=== PATIENT | male | born 1945 | race Caucasian/White ===

== ENCOUNTER 2022-01-16 11:43 | Inpatient (IN) | payer OTHER ==
[~2022-01-16] VITALS: Ht 172.7 cm; Wt 69.0 kg
[~2022-01-16 11:43] MED LIST: KEFLEX CAP 500500 MG PO; POLYSPORIN OP3.5 GM TOP
[2022-01-16] MEDS ORDERED: FINASTERIDE5 MG PO (12:49)
[2022-01-16] MEDS ORDERED: SODIUM BICARBO650 MG PO (12:49)
[2022-01-16] MEDS ORDERED: ELIQUIS5 MG PO (12:50)
[2022-01-16] MEDS ORDERED: METOPROLOL TART25 MG PO (12:50)
[2022-01-16] MEDS ORDERED: PROTONIX40 MG PO (12:50)
[2022-01-17 04:08] LABS: HEMOGLOBIN 11.9 gm/dl (14.0-17.5); RED BLOOD COUNT 4.32 M/UL (4.20-5.50); WHITE BLOOD COUNT 12.8 K/UL (4.5-11.0)
[2022-01-17 16:00] LABS: BODY FLUID SOURCE BRONCH RIGHT LUNG
[2022-01-18 12:03] LABS: RED BLOOD COUNT 4.03 M/UL (4.20-5.50)
[2022-01-18 12:04] LABS: WHITE BLOOD COUNT 8.9 K/UL (4.5-11.0)
[2022-01-19 04:33] LABS: HEMOGLOBIN 10.9 gm/dl (14.0-17.5); RED BLOOD COUNT 3.96 M/UL (4.20-5.50); WHITE BLOOD COUNT 6.9 K/UL (4.5-11.0)
[2022-01-20 11:18] LABS: RED BLOOD COUNT 4.01 M/UL (4.20-5.50)
[2022-01-22 05:17] LABS: HEMOGLOBIN 12.1 gm/dl (14.0-17.5); RED BLOOD COUNT 4.39 M/UL (4.20-5.50); WHITE BLOOD COUNT 6.7 K/UL (4.5-11.0)
[2022-01-24 09:21] LABS: HEMOGLOBIN 12.4 gm/dl (14.0-17.5); RED BLOOD COUNT 4.55 M/UL (4.20-5.50)
[2022-01-25 05:10] LABS: HEMOGLOBIN 12.1 gm/dl (14.0-17.5); RED BLOOD COUNT 4.41 M/UL (4.20-5.50); WHITE BLOOD COUNT 6.5 K/UL (4.5-11.0)
[2022-01-27 12:03] LABS: HEMOGLOBIN 11.9 gm/dl (14.0-17.5); RED BLOOD COUNT 4.29 M/UL (4.20-5.50)
[2022-01-28 04:28] LABS: HEMOGLOBIN 11.3 gm/dl (14.0-17.5); RED BLOOD COUNT 4.12 M/UL (4.20-5.50)
[2022-01-28 04:30] LABS: WHITE BLOOD COUNT 7.8 K/UL (4.5-11.0)
[2022-01-29 04:50] LABS: HEMOGLOBIN 12.1 gm/dl (14.0-17.5); RED BLOOD COUNT 4.39 M/UL (4.20-5.50); WHITE BLOOD COUNT 6.2 K/UL (4.5-11.0)
[2022-01-29] MEDS ORDERED: TYLENOL EL325 MG/10 PO (16:56)
[2022-01-29] MEDS ORDERED: IPRAT-ALBUT 0.5-3 ML NEB (16:56)
[2022-01-30 05:59] LABS: HEMOGLOBIN 11.9 gm/dl (14.0-17.5); RED BLOOD COUNT 4.37 M/UL (4.20-5.50); WHITE BLOOD COUNT 6.4 K/UL (4.5-11.0)
[2022-01-30] MEDS ORDERED: ROXANOL SOLN20 MG/ML PO (12:33)
[2022-01-30] MEDS ORDERED: BISACODYL10 MG PR (12:33)
[2022-01-30] MEDS ORDERED: HYOSCYAMINE0.125 M2 SL (12:33)
[2022-01-30] MEDS ORDERED: LORAZEPAM0.5 MG SL (12:33)
[2022-01-30] MEDS ORDERED: ZOFRAN ODT 4 MG4 MG SL (12:33)
== END 2022-01-30 16:35 | DRG 870 ==
LOC: CCU 11:43 → PROG CARE 01-25 15:07 → CCU 01-26 23:00
PROVIDERS: Internal Medicine; Internal Medicine Critical Care Medicine; Internal Medicine Pulmonary Disease; ADMIT Internal Medicine Infectious Disease
PROC: 3E03329 Introduction of Other Anti-infective into Peripheral Vein, Percutaneous Approach (ICD-10-PCS; principal; 2022-01-16)
PROC: 5A1955Z Respiratory Ventilation, Greater than 96 Consecutive Hours (ICD-10-PCS; 2022-01-16)
PROC: 0BH17EZ Insertion of Endotracheal Airway into Trachea, Via Natural or Artificial Opening (ICD-10-PCS; 2022-01-16)
PROC: 0B978ZZ Drainage of Left Main Bronchus, Via Natural or Artificial Opening Endoscopic (ICD-10-PCS; 2022-01-17)
PROC: 0B9F8ZX Drainage of Right Lower Lung Lobe, Via Natural or Artificial Opening Endoscopic, Diagnostic (ICD-10-PCS; 2022-01-17)
PROC: 4A00X4Z Measurement of Central Nervous Electrical Activity, External Approach (ICD-10-PCS; 2022-01-18)
PROC: 5A09457 Assistance with Respiratory Ventilation, 24-96 Consecutive Hours, Continuous Positive Airway Pressure (ICD-10-PCS; 2022-01-23)
PROC: 5A09357 Assistance with Respiratory Ventilation, Less than 24 Consecutive Hours, Continuous Positive Airway Pressure (ICD-10-PCS; 2022-01-26)
PROC: 0B9F8ZX Drainage of Right Lower Lung Lobe, Via Natural or Artificial Opening Endoscopic, Diagnostic (ICD-10-PCS; 2022-01-27)
PROC: 0B9K8ZZ Drainage of Right Lung, Via Natural or Artificial Opening Endoscopic (ICD-10-PCS; 2022-01-27)
PROC: 5A09357 Assistance with Respiratory Ventilation, Less than 24 Consecutive Hours, Continuous Positive Airway Pressure (ICD-10-PCS; 2022-01-27)
PROC: 0DH63UZ Insertion of Feeding Device into Stomach, Percutaneous Approach (ICD-10-PCS; 2022-01-29)
PROC: 3E0G76Z Introduction of Nutritional Substance into Upper GI, Via Natural or Artificial Opening (ICD-10-PCS; 2022-01-29)
DX: A41.9 Sepsis, unspecified organism (principal); Z20.822 Contact with and (suspected) exposure to COVID-19; G93.41 Metabolic encephalopathy; I21.A1 Myocardial infarction type 2; J69.0 Pneumonitis due to inhalation of food and vomit; J96.01 Acute respiratory failure with hypoxia; R65.21 Severe sepsis with septic shock; I46.9 Cardiac arrest, cause unspecified; J96.02 Acute respiratory failure with hypercapnia; N17.9 Acute kidney failure, unspecified; R13.10 Dysphagia, unspecified; I48.0 Paroxysmal atrial fibrillation; I12.9 Hypertensive chronic kidney disease with stage 1 through stage 4 chronic kidney disease, or unspecified chronic kidney disease; K56.41 Fecal impaction; N18.30 Chronic kidney disease, stage 3 unspecified; N40.1 Benign prostatic hyperplasia with lower urinary tract symptoms; K20.90 Esophagitis, unspecified without bleeding; N32.0 Bladder-neck obstruction; E78.5 Hyperlipidemia, unspecified; F03.90 Unspecified dementia, unspecified severity, without behavioral disturbance, psychotic disturbance, mood disturbance, and anxiety; K21.9 Gastro-esophageal reflux disease without esophagitis; K44.9 Diaphragmatic hernia without obstruction or gangrene; Z51.5 Encounter for palliative care; Z99.81 Dependence on supplemental oxygen; Z86.73 Personal history of transient ischemic attack (TIA), and cerebral infarction without residual deficits; Z87.442 Personal history of urinary calculi; Z85.828 Personal history of other malignant neoplasm of skin; Z90.49 Acquired absence of other specified parts of digestive tract; Z83.6 Family history of other diseases of the respiratory system; Z74.01 Bed confinement status; Z99.3 Dependence on wheelchair; Z79.01 Long term (current) use of anticoagulants
CPT/HCPCS: 36415; 36600; 70450; 71045; 74018; 74230; 80048; 80053; 80202; 82550; 82553; 82803; 83605; 83735; 84100; 84443; 84484; 85025; 85027; 87040; 87070; 87077; 87081; 87186; 87205; 89051; 92526; 92610; 92611-GN; 94002; 94003; 94640; 94660; 94664; 94667; 94668; 94760; 95816; 97110-GP-CQ; 97162; 97166; 97530; 97530-GP-CQ; A6212; C9113; J0171; J1650; J2185; J2250; J2543; J2704; J3010; J3370; J7030; J7040; J7070